=== PATIENT | female | born 1995 | race Caucasian/White ===

== ENCOUNTER 2016-09-23 15:33 | Emergency (ER) | payer OTHER ==
[~2016-09-23] VITALS: Ht 167.6 cm; Wt 70.4 kg
[~2016-09-23 15:33] MED LIST: SAFYTAB PO
[2016-09-23 15:35] VITALS: BP 141/97; PULSE 83; RESP 16; TEMP 98; O2SAT 99
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
[2016-09-23] MEDS ORDERED: NORE-44 PO (15:55)
[2016-09-23 16:00] LABS: BLOOD, URINE NEG (NEG); GLUCOSE,URINE NEG (NEG); KETONE, URINE 15 mg/dL (NEG); NITRITE,URINE NEG (NEG)
[2016-09-23] MEDS ORDERED: IBUPROFEN 800 MG TAB PO ONE (16:00)
[2016-09-23 16:07] LABS: MUCUS URINE MOD /lpf (OCC); RBC, URINE 0-3 /hpf (0-3); URINE COLOR YELLOW (YELLW/STRAW); WBC, URINE 0-2 /hpf (0-5)
[2016-09-23 16:08] LABS: BACTERIA, URINE OCC /hpf; COMMENT (UR) CULT NOT INDICATED; CULTURE IF INDICATED CULT NOT INDICATED
[2016-09-23] MEDS ORDERED: ORPH100T99 PO (16:20)
[2016-09-23] MEDS ORDERED: IBUP-232 PO (16:20)
[2016-09-23] MEDS ORDERED: EXTR500C PO (16:20)
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
== END 2016-09-23 16:40 | disposition home or self-care (01) ==
LOC: PHEFT 15:33
DX: M25.532 Pain in left wrist (principal); V43.52XA Car driver injured in collision with other type car in traffic accident, initial encounter
CPT/HCPCS: 73090; 81001; 84703; 99284